=== PATIENT | female | born 1975 | race Asian ===

== ENCOUNTER 2016-11-14 20:11 | Emergency (ER) | payer OTHER ==
[~2016-11-14] VITALS: Ht 157.5 cm; Wt 98.0 kg
== END 2016-11-14 23:03 | disposition home or self-care (01) ==
LOC: ED 20:11
DX: M25.531 Pain in right wrist (principal); M79.631 Pain in right forearm; M77.8 Other enthesopathies, not elsewhere classified
CPT/HCPCS: 99283

== ENCOUNTER 2017-02-27 08:42 | Emergency (ER) | payer OTHER ==
[~2017-02-27] VITALS: Ht 157.5 cm; Wt 98.9 kg
[2017-02-27 09:01] VITALS: BP 111/77; TEMP 97.9
== END 2017-02-27 09:23 | disposition home or self-care (01) ==
LOC: ED 08:42
DX: G56.02 Carpal tunnel syndrome, left upper limb (principal)
CPT/HCPCS: 99282

== ENCOUNTER 2019-07-07 14:25 | Outpatient (CLI) | payer OTHER | END 2019-07-07 22:00 | disposition home or self-care (01) | LOC: RAD 14:25 | DX: R29.898 Other symptoms and signs involving the musculoskeletal system (principal); M25.539 Pain in unspecified wrist ==

== ENCOUNTER 2021-04-25 08:22 | Outpatient (CLI) | payer OTHER | END 2021-04-25 23:00 | disposition home or self-care (01) | LOC: MAMMO 08:22 | PROVIDERS: ATTEND Nurse Practitioner Family | DX: N64.4 Mastodynia (principal) | CPT/HCPCS: G0279 ==

== ENCOUNTER 2021-05-31 08:47 | Outpatient (CLI) | payer OTHER ==
[~2021-05-31] VITALS: Ht 152.4 cm; Wt 68.0 kg
== END 2021-05-31 19:29 | disposition home or self-care (01) ==
LOC: US 08:47
PROVIDERS: ATTEND Nurse Practitioner Family
DX: N63.20 Unspecified lump in the left breast, unspecified quadrant (principal); R92.8 Other abnormal and inconclusive findings on diagnostic imaging of breast

== ENCOUNTER 2021-12-24 08:15 | Outpatient (CLI) | payer OTHER | END 2021-12-24 18:53 | disposition home or self-care (01) | LOC: LABW 08:15 | PROVIDERS: ATTEND Internal Medicine | DX: Z02.71 Encounter for disability determination (principal); C50.919 Malignant neoplasm of unspecified site of unspecified female breast; G56.00 Carpal tunnel syndrome, unspecified upper limb; R51.9 Headache, unspecified; M62.830 Muscle spasm of back; R53.83 Other fatigue; R20.0 Anesthesia of skin; R53.1 Weakness | CPT/HCPCS: 36415; 85018 ==

== ENCOUNTER 2022-01-10 08:07 | Outpatient (CLI) | payer OTHER | END 2022-01-10 20:56 | disposition home or self-care (01) | LOC: RAD 08:07 | PROVIDERS: ATTEND Internal Medicine | DX: Z02.71 Encounter for disability determination (principal); C50.919 Malignant neoplasm of unspecified site of unspecified female breast; G56.00 Carpal tunnel syndrome, unspecified upper limb; R51.9 Headache, unspecified; M62.830 Muscle spasm of back; R53.83 Other fatigue; R20.0 Anesthesia of skin; R53.1 Weakness ==

== ENCOUNTER 2022-07-15 13:18 | Emergency (ER) | payer OTHER ==
[~2022-07-15] VITALS: Ht 157.5 cm; Wt 99.8 kg
[2022-07-15 13:28] VITALS: TEMP 98.6
[2022-07-15 15:01] VITALS: BP 121/71
== END 2022-07-15 15:04 | disposition home or self-care (01) ==
LOC: ED 13:18
DX: L03.113 Cellulitis of right upper limb (principal); T78.3XXA Angioneurotic edema, initial encounter; X58.XXXA Exposure to other specified factors, initial encounter; Y92.89 Other specified places as the place of occurrence of the external cause
CPT/HCPCS: 96372; 99283; J0696

== ENCOUNTER 2022-09-12 16:05 | Emergency (ER) | payer OTHER ==
[~2022-09-12] VITALS: Ht 157.5 cm; Wt 102.5 kg
[2022-09-12 16:12] VITALS: BP 134/105; TEMP 99
== END 2022-09-12 17:15 | disposition home or self-care (01) ==
LOC: ED 16:05
DX: R05.8 Other specified cough (principal); I89.0 Lymphedema, not elsewhere classified
CPT/HCPCS: 96372; 99283; J0696; J2930